=== PATIENT | female | born 1980 | race Caucasian/White ===

== ENCOUNTER → 2017-02-20 19:56 | Outpatient (CLI) | payer MEDICAID ==
[2015-06-17 23:51] VITALS: BMI 25.0
[~2017-02-20 19:56] MED LIST: BIOTIN5 MG PO; EZFE 200200 MG PO; HYDROCODON-ACE1 EAC7 PO; MULTIPLE VITAMI1 TA1 PO; PERCOCET 10/3251 TA1 PO
== END | disposition home or self-care (01) ==
LOC: D.SLEEP 19:56
DX: G47.33 Obstructive sleep apnea (adult) (pediatric) (principal)